=== PATIENT | male | born 1945 | race Caucasian/White ===

== ENCOUNTER 2022-11-26 15:46 | Emergency (ER) | payer OTHER, MEDICARE, BC, SELFPAY ==
[2022-11-26] VITALS (20 sets, daily range): BP systolic 156–193; BP diastolic 86–114; PULSE 87–172; RESP 14–29; TEMP 36.4; O2SAT 95–100
--- NOTE | ~2022-11-26 | XR_ITS ---
EXAMINATION: XR chest 2V DATE: 11/26/2022 16:41 INDICATION: Chest pain TECHNIQUE: PA and lateral views of the chest are obtained. COMPARISON: 09/03/2008 FINDINGS: The lungs are free of acute opacities. No pleural effusion or pneumothorax. The cardiomedia stinal silhouette is normal. There is moderate thoracic spondylosis. There are widespread tiny calcif ied nodules, consistent with old granulomatous disease. IMPRESSION: 1. No acute cardiopulmonary abnormality. Reviewed, dictated and finalized at location [facility]
--- NOTE | 2022-11-26 16:16 | ECG_ITS ---
Measurements Intervals [place] Rate: 91 P: LA: 0 QRS: 35 QRSD: 98 T: 25 QT: 366 QTc: 451 Interpretive Statements ATRIAL FIBRILLATION ST-T WAVE ABNORMALITY IN ANTEROLATERAL LEADS- CONSIDER ISCHEMIA BASELINE ARTIFACT- I, II, III, AVR, AVL, AVF ABNORMAL ECG NO PREVIOUS ECG AVAILABLE FOR COMPARISON Electronically Signed On 11-27-2022 6:47:29 [employer] CALIBRATOR by William Martinez D.O.
[2022-11-26 16:50] LABS: Basophils Percent Auto 0.3 % (0.2-1.2); Eosinophils Absolute Auto 0.2 K/mm3 (0-0.3); Eosinophils Percent Auto 2.3 % (0-4.4); Hematocrit 42.8 % (42.0-52.0); Hemoglobin 13.8 g/dL (14.0-18.0); Immature Granulocyte Absolute 0.05 K/mm3 (0.00-0.031); Immature Granulocyte Percent A 0.5 % (0-0.5); Mean Corpuscular HGB Conc 32.2 g/dl (32-36); Mean Corpuscular Hemoglobin 31.5 pg (26-34); Mean Corpuscular Volume 97.7 fl (80-100); Mean Platelet Volume 10.5 fl (7.4-10.4); Monocytes Absolute Auto 0.7 K/mm3 (0.1-0.6); Monocytes Percent Auto 6.8 % (2.6-8.5); Neutrophils Absolute Auto 7.4 K/mm3 (1.3-6.7); Neutrophils Percent Auto 70.1 % (45.5-73.1); Platelet Count Result 227 k/mm3 (150-375); Red Blood Count 4.38 M/mm3 (4.6-6.20); White Blood Count 10.5 K/mm3 (4.5-10.0)
[2022-11-26 17:00] LABS: INR 1.1; Partial Thromboplastin Time 24.1 SECONDS (22.3-36.8); Prothrombin Time 13.3 Seconds (11.1-14.7)
[2022-11-26 17:04] LABS: Alanine Aminotransferase 23 U/L (6-50); Albumin Level 4.4 g/dL (3.5-5.1); Alkaline Phosphatase 128 U/L (38-126); Anion Gap 7 mmol/L (8-16); Aspartate Amino Transferase 33 U/L (17-59); Bilirubin,Total 0.7 mg/dL (0.2-1.3); Blood Urea Nitrogen 20 mg/dL (9-20); Calcium 8.9 mg/dL (8.4-10.2); Carbon Dioxide 25 mmol/L (22-30); Chloride 108 mmol/L (98-107); Estimated CRCL calculation 28 ml/min; Estimated Glomerular Filt Rate 53; Glucose 111 mg/dL (65-110); Lipase 164 U/L (23-300); Potassium 4.3 mmol/L (3.4-5.0); Sodium 140 mmol/L (137-145)
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
[2022-11-26 17:13] LABS: NT Pro B Type Natriuretic Pept 3380 pg/mL (19.9-100)
--- NOTE | 2022-11-26 18:40 | PC.NURSE ---
Pt's heart rate has been more controlled at 80-100bpm. Per MD Hernández, hold ordered diltiazem unless pt becomes more tachycardic again.
--- NOTE | 2022-11-26 19:45 | PC.NURSE ---
Report received from FERNANDO Neri. Assumed care of patient at this time. Patient waiting for EMS to arrive to transport patient to [place].
--- NOTE | 2022-11-26 20:05 | PC.NURSE ---
[facility] arrives to room to transport patient to [facility].
--- NOTE | 2022-11-26 20:18 | PC.NURSE ---
Lab reported a troponin of 0.244 after patient had departed ED to tertiary facility. ED charge notified and this will be reported to tertiary facility.
[2022-11-26 20:21] LABS: Troponin I 0.244 ng/mL (0.000-0.034)
--- NOTE | 2022-11-26 20:21 | PC.NURSE ---
This nurse was notified of patients critical trop, called [facility] and spoke to FERNANDO Hernández to inform her that the patient is en route to their facility but his 2nd trop was 0.244 when his first was 0.030.
== END 2022-11-26 20:09 | disposition short-term general hospital (02) ==
PROVIDERS: Emergency Provider Emergency Medicine; PCP Family Medicine Adolescent Medicine
DX: I48.91 Unspecified atrial fibrillation (principal); R07.9 Chest pain, unspecified; I25.10 Atherosclerotic heart disease of native coronary artery without angina pectoris; I10 Essential (primary) hypertension; E78.5 Hyperlipidemia, unspecified; V42.5XXA Car driver injured in collision with two- or three-wheeled motor vehicle in traffic accident, initial encounter
CPT/HCPCS: 36415; 71046; 80053; 83690; 83880; 84484; 85025; 85610; 85730; 93005; 96374; 99285

== ENCOUNTER 2023-04-20 13:30 | Outpatient (RCR) | payer MEDICARE, BC, SELFPAY | END 2023-04-20 16:56 | disposition home or self-care (01) | LOC: ANHCPREHAB 13:30 | PROVIDERS: PCP Family Medicine Adolescent Medicine; Visit Provider Internal Medicine Cardiovascular Disease | DX: Z95.5 Presence of coronary angioplasty implant and graft (principal) | CPT/HCPCS: 93798 ==